=== PATIENT | male | born 1980 | race Caucasian/White ===

== ENCOUNTER 2019-11-26 14:54 | Emergency (ER) | payer BC ==
[~2019-11-26] VITALS: Ht 175.3 cm; Wt 75.5 kg
[2019-11-26 14:55] VITALS: BP 135/69
[2019-11-26] MEDS ORDERED: ADVIL (15:01)
--- NOTE | 2019-11-26 15:48 | REPVR ---
PROCEDURE INFORMATION: Exam: XR Right Ankle Exam date and time: 11/26/2019 3:02 PM Age: 39 years old Clinical indication: Injury or trauma; Injury history: Twisted ankle playing ball; Initial encounter; Swelling (edema); Right; Additional info: Injured right ankle TECHNIQUE: Imaging protocol: XR Right ankle. Views: 3 or more views. COMPARISON: No relevant prior studies available. FINDINGS: Bones/joints: Acute lateral malleolus avulsion fracture with 2-3 mm displacement. No dislocation. There is an 11 x 9 mm ossific fragment present projecting over the anterior/superior talus seen on the lateral view; no definitive donor fracture site is identified. Mild cortical irregularity of the posterior talus seen on the lateral view. A talus fracture is not excluded. Soft tissues: Lateral ankle soft tissue swelling. Findings consistent with an ankle joint effusion. Mild infiltration of Kager's fat pad. IMPRESSION: 1. Acute lateral malleolus fracture. 2. A talus fracture is not excluded. Further evaluation with ankle CT is recommended. Electronically signed by: Cristino Cortez On 11/26/2019 15:47:45 PM
== END 2019-11-26 18:19 | disposition home or self-care (01) ==
LOC: M ED 14:54
DX: S82.61XA Displaced fracture of lateral malleolus of right fibula, initial encounter for closed fracture (principal); S92.101A Unspecified fracture of right talus, initial encounter for closed fracture; Y92.9 Unspecified place or not applicable; Y93.73 Activity, racquet and hand sports; Y99.9 Unspecified external cause status